=== PATIENT | female | born 1990 | race Caucasian/White ===

== ENCOUNTER 2016-05-12 08:54 | Emergency (ER) | payer MEDICAID ==
[2016-05-12 09:03] VITALS: BP 128/62; PULSE 101; TEMP 98.7; BMI 29.2
== END 2016-05-12 14:11 | disposition left against medical advice (07) ==
LOC: EDMC 08:54 → ED 14:11
DX: R05 Cough (principal); R09.81 Nasal congestion; J02.9 Acute pharyngitis, unspecified; R11.0 Nausea; Z53.21 Procedure and treatment not carried out due to patient leaving prior to being seen by health care provider
CPT/HCPCS: 99281